=== PATIENT | male | born 1960 | race Caucasian/White ===

== ENCOUNTER 2017-06-22 15:21 | Emergency (ER) | payer BC, OTHER ==
[2017-06-22 15:33] VITALS: BP 145/90; PULSE 82; TEMP 97.8; BMI 22.0
[2017-06-22] MEDS ORDERED: KETOROLAC TROMETHAMINE 15 MG/ML VIAL IM ONE (15:56)
--- NOTE | 2017-06-22 15:58 | PDOC ---
History of Present Illness - General Chief Complaint: Pain Stated Complaint: LEFT SHOULDER & UPPER ARM PAIN Time Seen by Provider: 06/22/17 15:25 History Source: Patient Exam Limitations: No Limitations - History of Present Illness Initial Comments: 06/22/17 15:58 57M no pmh presents with painful left shoulder since the past 3 weeks, but particularly painful last night while he was sleeping in bed. No traumatic inducing event, sport or occupational. Pain is non-radiating, but increased with internal rotation and elevation. Patient hasn't tried taking any medication for it. 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 Ocassional sports are biking and jogging. Past History - Past Medical History Allergies/Adverse Reactions: Allergies Allergy/AdvReac Type Severity Reaction Status Date / Time No Known Drug Allergies Allergy Verified 01/28/15 07:01 Home Medications: Ambulatory Orders Naproxen [Naprosyn -] 500 mg PO BID #30 tablet 06/22/17 Anemia: No Asthma: No Cancer: No Cardiac Disorders: No CVA: No COPD: No CHF: No Dementia: No Diabetes: No GI Disorders: Yes (COLITIS) Disorders: No HTN: No Hypercholesterolemia: No Liver Disease: No Seizures: No Thyroid Disease: No - Surgical History Abdominal Surgery: No Appendectomy: No Cardiac Surgery: No Cholecystectomy: No Lung Surgery: No Neurologic Surgery: No Orthopedic Surgery: No - Suicide/Smoking/Psychosocial Hx Smoking Status: No Smoking History: Never smoked Have you smoked in the past 12 months: No Number of Cigarettes Smoked Daily: 0 Hx Alcohol Use: Yes Drug/Substance Use Hx: No Substance Use Type: None Hx Substance Use Treatment: No Review of Systems - Review of Systems Able to Perform ROS?: Yes Is the patient limited Maltese proficient: No Constitutional: No: Chills, Diaphoresis, Fever HEENTM: No: Symptoms Reported Respiratory: No: Symptoms reported Cardiac (ROS): No: Symptoms Reported ABD/GI: No: Symptoms Reported : No: Symptoms Reported Musculoskeletal: Yes: See HPI *Physical Exam - Vital Signs Last Vital Signs Temp Pulse Resp BP Pulse Ox 97.8 F 82 15 145/90 100 06/22/17 15:22 06/22/17 15:22 06/22/17 15:22 06/22/17 15:22 06/22/17 15:22 - Physical Exam General Appearance: Yes: Nourished, Appropriately Dressed. No: Apparent Distress HEENT: positive: EOMI, SKIP, Normal ENT Inspection Neck: negative: Tender Respiratory/Chest: positive: Lungs Clear, Normal Breath Sounds. negative: Chest Tender Cardiovascular: positive: Regular Rhythm, Regular Rate, S1, S2 Vascular Pulses: Dorsalis-Pedis (R): 2+, Doralis-Pedis (L): 2+ Gastrointestinal/Abdominal: positive: Normal Bowel Sounds, Flat (Hawkin's test positive. Extremely painful internal shoulder rotation), Soft. negative: Tender Medical Decision Making - Medical Decision Making 06/22/17 16:08 57M with left sided shoulder pain excacerbated last night. Suspecting supraspinatus tendon impingement Toradol injection administered. Will give orthopedic/education counselor/physical therapy referal. *DC/Admit/Observation/Transfer Diagnosis at time of Disposition: Impingement syndrome of left shoulder - Discharge Dispostion Disposition: HOME Condition at time of disposition: Improved Admit: No - Referrals Referrals: Rivera Coon MD [Staff Physician] - - Patient Instructions Additional Instructions: Follow [facility] with orthopedist for follow up and physical therapy. Apply ice, rest and Naproxen twice as day as needed
[2017-06-22] MEDS ORDERED: KETOROLAC TROMETHAMINE 30 MG/1 ML VIAL ONE (15:59)
--- NOTE | 2017-06-22 16:12 | PDOC ---
Attending Attestation - Resident Resident Name: Patrick Rivera - ED Attending Attestation I have performed the following: I have examined & evaluated the patient, The case was reviewed & discussed with the resident, I agree w/resident's findings & plan, Exceptions are as noted - HPI HPI: 06/22/17 16:06 57 M with no PMH presents to ER with 1 month of L shoulder pain. Pt states that he believes he initially injured it lifting luggage. Since then, the pain has progressively worsened. It is worse with lifting his arm and internally rotating it. He denies any falls or trauma. Denies any weakness/numbness/ tingling in his upper extremities. Pt denies neck pain. Denies back pain. Denies lower extremity pain or weakness. Denies CP/SOB. - Physicial Exam PE: 06/22/17 16:12 "GENERAL: Awake, alert, and fully oriented, in no acute distress HEAD: No signs of trauma EYES: PERRLA, EOMI, sclera anicteric, conjunctiva clear ENT: Auricles normal inspection, hearing grossly normal, nares patent, oropharynx clear without exudates. Moist mucosa NECK: Nontender, no stepoffs, Normal ROM, supple, no lymphadenopathy, JVD, or masses LUNGS: Breath sounds equal, clear to auscultation bilaterally. No wheezes, and no crackles HEART: Regular rate and rhythm, normal S1 and S2, no murmurs, rubs or gallops ABDOMEN: Soft, nontender, normoactive bowel sounds. No guarding, no rebound. No masses EXTREMITIES: RUE with no deformity, full passive ROM, active flexion of shoulder limited 2/2 pain, no numbness, no weakness NEUROLOGICAL: Cranial nerves II through XII intact. 5/5 strength and sensation in all extremities, Normal speech, normal gait SKIN: Warm, Dry, normal turgor, no rashes or lesions noted. " - Medical Decision Making 06/22/17 16:13 57 M with L shoulder pain x 1 month. No h/o trauma or deformity on exam to necessitate imaging in ER. Likely tendinitis vs nerve impingement. Pt neurovascularly intact in LUE. Pain very reproducible with palpation of bicipital tendon. No fevers to suggest septic arthritis. - NSAIDS - F/u ortho
== END 2017-06-22 16:22 | disposition home or self-care (01) ==
LOC: FER 15:21
PROC: 3E0233Z Introduction of Anti-inflammatory into Muscle, Percutaneous Approach (ICD-10-PCS; principal; 2017-06-22)
DX: M75.42 Impingement syndrome of left shoulder (principal)
CPT/HCPCS: 99282-25

== ENCOUNTER 2021-11-02 08:14 | Day surgery (SDC) | payer OTHER ==
[2021-10-31 14:37] VITALS: BMI 25.7
[2021-11-02 10:16] VITALS: BP 133/80; PULSE 82; TEMP 97.8
== END 2021-11-02 10:15 | disposition home or self-care (01) ==
LOC: FASU-ENDO 08:14
PROVIDERS: ATTEND Internal Medicine Gastroenterology
PROC: 0DBL8ZX Excision of Transverse Colon, Via Natural or Artificial Opening Endoscopic, Diagnostic (ICD-10-PCS; 2021-11-02)
PROC: 0DBN8ZX Excision of Sigmoid Colon, Via Natural or Artificial Opening Endoscopic, Diagnostic (ICD-10-PCS; 2021-11-02)
PROC: 0DBP8ZX Excision of Rectum, Via Natural or Artificial Opening Endoscopic, Diagnostic (ICD-10-PCS; 2021-11-02)
PROC: 0DBM8ZX Excision of Descending Colon, Via Natural or Artificial Opening Endoscopic, Diagnostic (ICD-10-PCS; 2021-11-02)
PROC: 0DBK8ZX Excision of Ascending Colon, Via Natural or Artificial Opening Endoscopic, Diagnostic (ICD-10-PCS; principal; 2021-11-02 09:14)
DX: Z87.19 Personal history of other diseases of the digestive system (principal); K63.89 Other specified diseases of intestine
CPT/HCPCS: 88305-TC

== ENCOUNTER 2022-07-13 00:48 | Emergency (ER) | payer BC, OTHER ==
[2022-07-13 00:58] VITALS: BP 157/105; PULSE 72; RESP 19; TEMP 97.6; BMI 29.1
== END 2022-07-13 03:01 | disposition home or self-care (01) ==
LOC: FER 00:48
DX: I10 Essential (primary) hypertension (principal)
CPT/HCPCS: 36415; 82550; 84484; 93005; 99284-25

== ENCOUNTER 2022-08-30 02:40 | Emergency (ER) | payer BC ==
[2022-08-30 02:59] VITALS: BP 147/94; PULSE 80; RESP 16; TEMP 98; BMI 22.3
== END 2022-08-30 03:02 | disposition home or self-care (01) ==
LOC: FER 02:40
DX: H93.A2 Pulsatile tinnitus, left ear (principal)
CPT/HCPCS: 99281-25